=== PATIENT | female | born 1965 | race Caucasian/White ===

== ENCOUNTER → 2018-01-29 | Outpatient (CLI) | payer OTHER ==
[~2018-01-29] VITALS: Ht 165.1 cm; Wt 61.2 kg
[~2018-01-29] MED LIST: ESSENTIAL WOMA1 EAC1 PO; SYNTHROID150 MCG PO; WELLBUTRIN XL300 MG PO
== END | disposition home or self-care (01) ==
LOC: AMB 09:13
PROC: 0DJD8ZZ Inspection of Lower Intestinal Tract, Via Natural or Artificial Opening Endoscopic (ICD-10-PCS; principal; 2018-01-29)
DX: K57.30 Diverticulosis of large intestine without perforation or abscess without bleeding (principal); K64.8 Other hemorrhoids; Z80.0 Family history of malignant neoplasm of digestive organs